=== PATIENT | female | born 1975 | race Caucasian/White ===

== ENCOUNTER 2018-09-26 16:27 | Emergency (ER) | payer MEDICAID ==
[2018-09-26] MEDS: KETOROLAC 60 MG INJ IM (17:18)
[2018-09-26] MEDS: predniSONE 20 MG TAB PO (17:18)
== END 2018-09-26 17:24 | disposition home or self-care (01) ==
LOC: FTE 16:27
DX: M54.41 Lumbago with sciatica, right side (principal)
CPT/HCPCS: 81025; 96372; 99284-25

== ENCOUNTER 2018-10-16 14:25 | Emergency (ER) | payer MEDICAID ==
[2018-10-16] MEDS: IBUPROFEN 800 MG TAB PO (15:16)
== END 2018-10-16 16:23 | disposition home or self-care (01) ==
LOC: FTE 14:25
DX: J00 Acute nasopharyngitis [common cold] (principal)
CPT/HCPCS: 87400; 87880; 99283